=== PATIENT | female | born 1970 | race Two or more races ===

== ENCOUNTER 2022-12-31 18:31 | Emergency (ER) | payer OTHER ==
[~2022-12-31] VITALS: Ht 152.4 cm; Wt 65.8 kg
[2022-12-31] MEDS ORDERED: ATIVAN2 M1 PO (19:26)
[2022-12-31] MEDS ORDERED: [UNRECOGNIZED DRUG - OTHER] (19:26)
[2022-12-31 21:07] LABS: HEMATOCRIT 41.1 % (36.0-45.00); HEMOGLOBIN 13.7 g/dL (12.0-15.00); MEAN CELL VOLUME 83.1 fL (80.00-100.00); MEAN CORPUSCULAR HEMOGLOBIN 27.8 pg (27.00-32.0); MEAN CORPUSCULAR HGB CONC 33.4 g/dl (32.0-36.0); PLATELET COUNT 189 K/uL (150-450); RED BLOOD COUNT 4.94 M/uL (4.00-6.00); RED CELL DISTRIBUTION WIDTH 14.3 % (11.5-14.5)
[2022-12-31 21:32] LABS: BILIRUBIN TOTAL 0.47 mg/dL (0.3-1.2); BILIRUBIN,CONJUGATED 0.11 mg/dL (0.0-0.2); BILIRUBIN,UNCONJUGATED 0.36 mg/dL (0.0-0.6); CALCIUM 8.1 mg/dL (8.5-10.1); CREATININE SERUM 0.71 mg/dL (0.55-1.02); GFR 86.44; POTASSIUM 3.82 mEq/L (3.5-5.1)
[2022-12-31 22:31] LABS: URINE APPEARANCE Cloudy; URINE BILIRRUBIN Negative (NEGATIVE); URINE BLOOD Negative; URINE COLOR Yellow; URINE GLUCOSE Negative (NEGATIVE); URINE LEUKOCYTE Negative; URINE NITRATE Negative; URINE PROTEIN Trace (NEGATIVE)
[2022-12-31 22:35] LABS: URINE EPITHELIAL CELLS 145.9 uL (0.0-38.8); URINE RBC 5.3 uL (0.0-20.8); URINE WBC 24.5 uL (0.0-23.2)
[2022-12-31 22:49] LABS: URINE MUCUS HEAVY
[2022-12-31 22:50] LABS: URINE CRYSTALS FEW /HPF
[2022-12-31] MEDS ORDERED: ZOFRAN8 MG PO (23:02)
[2022-12-31] MEDS ORDERED: PEPCID AC20 MG PO (23:02)
== END 2022-12-31 23:47 | disposition home or self-care (01) ==
LOC: ER 18:32
PROVIDERS: General Practice
DX: K29.00 Acute gastritis without bleeding (principal); Z88.8 Allergy status to other drugs, medicaments and biological substances; Z91.013 Allergy to seafood; M79.7 Fibromyalgia
CPT/HCPCS: 36415; 96365; 96366; 99283; J1885; J2405; J3490

== ENCOUNTER 2023-03-10 09:08 | Emergency (ER) | payer OTHER ==
[~2023-03-10] VITALS: Ht 154.9 cm; Wt 87.5 kg
[~2023-03-10 09:08] MED LIST: ATIVAN2 M1 PO; PEPCID AC20 MG PO; ZOFRAN8 MG PO; [UNRECOGNIZED DRUG - OTHER]
== END 2023-03-10 14:11 | disposition home or self-care (01) ==
LOC: ER 09:08
DX: M25.561 Pain in right knee (principal); M25.569 Pain in unspecified knee; Z88.8 Allergy status to other drugs, medicaments and biological substances; Z91.013 Allergy to seafood
CPT/HCPCS: 73560; 96372; 99283; J1100; J1885